=== PATIENT | female | born 1940 | race Caucasian/White ===

== ENCOUNTER 2021-12-26 14:23 | Inpatient (IN) ==
[2021-12-26] MEDS ORDERED: SODIUM CHLORIDE 0.9% 500 ML IV STA (15:09)
[2021-12-26 15:56] LABS: Basophils # 0.1 10*3/uL (0.0-0.2); Basophils % 0.5 % (0.0-0.8); Eosinophils # 0.1 10*3/uL (0.0-0.87); Eosinophils % 0.8 % (0.00-10.9); Hematocrit 43.2 VOL% (35.7-47.0); Immature Granulocytes % 0.5 %; Immature Granulocytes Absolute 0.07 #; Lymphocytes # 1.3 10*3/uL (1.4-4.0); Lymphocytes % 9.8 % (21.3-54.2); Mean Corpuscular HGB Conc 32.4 GM/DL (32-36); Mean Corpuscular Volume 94.7 FL (87-102); Mean Platelet Volume 10.8 FL (9.6-12.0); Monocytes # 0.5 10*3/uL (0.11-0.8); Monocytes % 3.9 % (1.7-12.7); Neutrophils % 84.5 % (38.7-73.9); Platelet Count 261 T/CUMM (130-400); Red Blood Count 4.56 MC/CUMM (3.8-5.5); Red Cell Distribution Width 13.6 % (9.3-17.3); White Blood Count 13.2 T/CUMM (4-12)
[2021-12-26 16:07] LABS: INR 0.9; PT Patient Result 10.5 SECS (10.5-12.0); Partial Thromboplastin Time 24.2 SECS (23.8-32.1)
[2021-12-26 16:13] LABS: Alanine Aminotransferase 22 U/L (13-56); Albumin 3.5 G/DL (3.4-5.0); Alkaline Phosphatase 85 U/L (45-117); Aspartate Amino Transferase 15 U/L (0-37); Bilirubin,Total < 0.39 MG/DL (0.20-1.00); Blood Urea Nitrogen 19 MG/DL (7-18); Calcium 8.7 MG/DL (8.5-10.1); Carbon Dioxide 27 MMOL/L (21-32); Chloride 109 MMOL/L (98-107); Estimated Glom Filtration Rate 47 ML/MIN; Glucose 143 MG/DL (74-106); Osmolality,Calculated 284.3 MOS/KG (273-304); Sodium 141 MMOL/L (136-145); Total Protein 6.5 G/DL (6.4-8.2)
[2021-12-26 16:15] LABS: Urine Appearance Clear (Clear); Urine Color Yellow (Yellow)
[2021-12-26 16:16] LABS: Bacteria,Urine Many /HPF (Few); Bilirubin,Urine Negative (Negative); Blood, Urine Trace mg/dL (Negative); Glucose,Urine (UA) Negative (Negative); Ketones,Urine Negative (Negative); Nitrite,Urine Negative (Negative); Protein,Urine Negative (Negative); Urine Urobilinogen 0.2 eU/dL (<2.0)
[2021-12-26] MEDS ORDERED: hydrALAZINE 20 MG/1 ML VIAL IV PRN (16:48)
[2021-12-26] MEDS ORDERED: ALBUTEROL 2.5 MG/3 ML NEB RESP TX PRN (16:48)
[2021-12-26] MEDS ORDERED: GLUCAGON 1 MG VIAL IM PRN ×2 (16:48)
[2021-12-26] MEDS ORDERED: DEXTROSE 50% 25 GM/50 ML VIAL IV PRN (16:48)
[2021-12-26] MEDS ORDERED: traZODone 50 MG TABLET PO PRN (16:48)
[2021-12-26] MEDS ORDERED: ONDANSETRON 4 MG/2 ML VIAL IV PRN (16:48)
[2021-12-26] MEDS ORDERED: ACETAMINOPHEN 325 MG TABLET PO PRN (16:48)
[2021-12-26] MEDS ORDERED: traMADol 50 MG TABLET PO PRN (16:55)
[2021-12-26] MEDS ORDERED: DEXTROSE 10% 250 ML BAG IV PRN (17:00)
[2021-12-26] MEDS: LACTATED RINGERS 1,000 ML IV SCH (17:15)
[2021-12-26] MEDS ORDERED: KETOROLAC 15 MG/1 ML VIAL IV PRN (20:50)
[2021-12-26] MEDS: DONEPEZIL 10 MG TABLET PO SCH (21:34)
[2021-12-26] MEDS: INSULIN REGULAR 100 UNIT/ML SUBCUT SCH (21:44)
[2021-12-27 05:20] LABS: Basophils # 0.1 10*3/uL (0.0-0.2); Basophils % 0.5 % (0.0-0.8); Eosinophils # 0.1 10*3/uL (0.0-0.87); Eosinophils % 1.1 % (0.00-10.9); Hemoglobin 12.2 GM/DL (12.0-16.0); Immature Granulocytes % 0.5 %; Immature Granulocytes Absolute 0.05 #; Lymphocytes # 1.8 10*3/uL (1.4-4.0); Lymphocytes % 17.2 % (21.3-54.2); Mean Corpuscular Volume 94.1 FL (87-102); Monocytes % 8.9 % (1.7-12.7); Neutrophils % 71.8 % (38.7-73.9); Platelet Count 222 T/CUMM (130-400); Red Blood Count 3.93 MC/CUMM (3.8-5.5); Red Cell Distribution Width 13.8 % (9.3-17.3); White Blood Count 10.7 T/CUMM (4-12)
[2021-12-27 05:50] LABS: Calcium 8.7 MG/DL (8.5-10.1); Osmolality,Calculated 291.1 MOS/KG (273-304); Potassium 4.2 MMOL/L (3.5-5.1); Risk Ratio 2.79; Thyroid Stimulating Hormone 1.86 uIU/ml (0.358-3.74)
[2021-12-27] MEDS ORDERED: DEXAMETHASONE 4 MG/1 ML VIAL ONE (06:56)
[2021-12-27] MEDS ORDERED: EPINEPHrine 1 MG/ML VIAL ONE (06:56)
[2021-12-27] MEDS ORDERED: BUPIVACAINE MPF 0.5% 30 ML VIAL ONE (06:56)
[2021-12-27] MEDS ORDERED: DEXMEDETOMIDINE 200 MCG/2 ML VIAL ONE (07:00)
[2021-12-27] MEDS ORDERED: ONDANSETRON 4 MG/2 ML VIAL ONE (07:00)
[2021-12-27] MEDS ORDERED: ROCURONIUM 50 MG/5 ML VIAL IV ONE (07:00)
[2021-12-27] MEDS ORDERED: KETAMINE 500 MG/10 ML VIAL ONE (07:00)
[2021-12-27] MEDS ORDERED: SUCCINYLCHOLINE 200 MG/10 ML VIAL ONE (07:00)
[2021-12-27] MEDS ORDERED: propofoL 200 MG/20 ML VIAL IV ONE (07:01)
[2021-12-27] MEDS ORDERED: BUPIVACAINE SPINAL 0.75% 2 ML AMP SPINAL ONE (07:13)
[2021-12-27] MEDS ORDERED: buprenorphine HCL 0.3 MG/ML VIAL ONE (07:13)
[2021-12-27] MEDS ORDERED: ceFAZolin 1,000 MG VIAL ONE (08:02)
[2021-12-27] MEDS ORDERED: ePHEDrine 50 MG/ML VIAL ONE (08:14)
[2021-12-27] MEDS ORDERED: SODIUM CHLORIDE 0.9% 1,000 ML IV ONE (09:02)
[2021-12-27] MEDS ORDERED: PHENYLEPHRINE 1 MG/10 ML SYRINGE IV ONE (09:02)
[2021-12-27] MEDS ORDERED: MAGNESIUM HYDROXIDE SUSP 30 ML UDCUP PO PRN (10:39)
[2021-12-27] MEDS: INSULIN REGULAR 100 UNIT/ML SUBCUT SCH ×4 (10:47→21:12)
[2021-12-27] MEDS: PANTOPRAZOLE 40 MG TABLET PO SCH (11:05)
[2021-12-27] MEDS: ASPIRIN CHEW 81 MG TABLET PO SCH (11:05)
[2021-12-27] MEDS: MONTELUKAST 10 MG TABLET PO SCH (11:05)
[2021-12-27] MEDS: LACTATED RINGERS 1,000 ML IV SCH (11:06)
[2021-12-27] MEDS ORDERED: INSULIN GLARGINE 100 UNIT/ML SUBCUT SCH (21:00)
[2021-12-27] MEDS: DOCUSATE SODIUM 100 MG CAPSULE PO SCH (21:11)
[2021-12-27] MEDS: POLYETHYLENE GLYCOL POWDER 17 GM PACK PO SCH (21:11)
[2021-12-27] MEDS: DONEPEZIL 10 MG TABLET PO SCH (21:11)
[2021-12-28] MEDS: LACTATED RINGERS 1,000 ML IV SCH ×2 (02:10→17:00)
[2021-12-28 05:16] LABS: Basophils % 0.1 % (0.0-0.8); Hematocrit 32.2 VOL% (35.7-47.0); Hemoglobin 10.6 GM/DL (12.0-16.0); Immature Granulocytes % 0.6 %; Immature Granulocytes Absolute 0.09 #; Lymphocytes % 6.3 % (21.3-54.2); Mean Corpuscular HGB Conc 32.9 GM/DL (32-36); Mean Corpuscular Volume 94.4 FL (87-102); Mean Platelet Volume 11.3 FL (9.6-12.0); Monocytes % 6.6 % (1.7-12.7); Neutrophils % 86.4 % (38.7-73.9); Platelet Count 198 T/CUMM (130-400); Red Blood Count 3.41 MC/CUMM (3.8-5.5); Red Cell Distribution Width 13.9 % (9.3-17.3); White Blood Count 15.5 T/CUMM (4-12)
[2021-12-28 05:42] LABS: Osmolality,Calculated 288.4 MOS/KG (273-304); Potassium 4.3 MMOL/L (3.5-5.1)
[2021-12-28] MEDS ORDERED: LINACLOTIDE 145 MCG CAPSULE PO SCH (07:30)
[2021-12-28] MEDS: POLYETHYLENE GLYCOL POWDER 17 GM PACK PO SCH ×2 (09:04→21:43)
[2021-12-28] MEDS: DOCUSATE SODIUM 100 MG CAPSULE PO SCH ×2 (09:04→21:43)
[2021-12-28] MEDS: MONTELUKAST 10 MG TABLET PO SCH (09:04)
[2021-12-28] MEDS: PANTOPRAZOLE 40 MG TABLET PO SCH (09:04)
[2021-12-28] MEDS: ASPIRIN CHEW 81 MG TABLET PO SCH (09:04)
[2021-12-28] MEDS: INSULIN REGULAR 100 UNIT/ML SUBCUT SCH ×4 (09:05→21:44)
[2021-12-28] MEDS ORDERED: LACTULOSE 20 GM/30 ML UDCUP PO ONE (14:15)
[2021-12-28] MEDS ORDERED: FONDAPARINUX 2.5 MG/0.5 ML SYRINGE SUBCUT SCH (16:30)
[2021-12-28] MEDS ORDERED: INSULIN GLARGINE 100 UNIT/ML SUBCUT SCH (21:00)
[2021-12-28] MEDS: DONEPEZIL 10 MG TABLET PO SCH (21:43)
[2021-12-29] MEDS: LACTATED RINGERS 1,000 ML IV SCH (04:35)
[2021-12-29 06:11] LABS: Basophils % 0.3 % (0.0-0.8); Eosinophils # 0.1 10*3/uL (0.0-0.87); Eosinophils % 0.8 % (0.00-10.9); Hematocrit 28.9 VOL% (35.7-47.0); Hemoglobin 9.7 GM/DL (12.0-16.0); Immature Granulocytes % 0.5 %; Immature Granulocytes Absolute 0.06 #; Lymphocytes # 1.9 10*3/uL (1.4-4.0); Lymphocytes % 16.4 % (21.3-54.2); Mean Corpuscular HGB Conc 33.6 GM/DL (32-36); Mean Corpuscular Volume 94.4 FL (87-102); Mean Platelet Volume 11.6 FL (9.6-12.0); Monocytes # 0.9 10*3/uL (0.11-0.8); Monocytes % 8.1 % (1.7-12.7); Neutrophils % 73.9 % (38.7-73.9); Platelet Count 200 T/CUMM (130-400); Red Blood Count 3.06 MC/CUMM (3.8-5.5); Red Cell Distribution Width 14.2 % (9.3-17.3); White Blood Count 11.4 T/CUMM (4-12)
[2021-12-29 06:34] LABS: Calcium 8.7 MG/DL (8.5-10.1); Osmolality,Calculated 290.1 MOS/KG (273-304); Potassium 3.8 MMOL/L (3.5-5.1)
[2021-12-29] MEDS ORDERED: LINACLOTIDE 145 MCG CAPSULE PO SCH (07:30)
[2021-12-29] MEDS ORDERED: DAPAGLIFLOZIN 5 MG TABLET PO SCH (09:00)
[2021-12-29] MEDS: INSULIN REGULAR 100 UNIT/ML SUBCUT SCH ×2 (09:04→11:53)
[2021-12-29] MEDS: ASPIRIN CHEW 81 MG TABLET PO SCH (09:05)
[2021-12-29] MEDS: PANTOPRAZOLE 40 MG TABLET PO SCH (09:05)
[2021-12-29] MEDS: DOCUSATE SODIUM 100 MG CAPSULE PO SCH (09:05)
[2021-12-29] MEDS: MONTELUKAST 10 MG TABLET PO SCH (09:05)
[2021-12-29] MEDS: POLYETHYLENE GLYCOL POWDER 17 GM PACK PO SCH (09:06)
[2021-12-29 11:12] VITALS: BP 132/65
== END 2021-12-29 14:25 | DRG 481 ==
LOC: EDBD → EDUNIT# → N.ED 14:23 → SUATTDRO 16:48 → N.3E 16:48
PROVIDERS: ADMIT Internal Medicine; ATTEND Hospitalist